=== PATIENT | female | born 1960 | race Caucasian/White ===

== ENCOUNTER 2017-04-27 14:09 | Emergency (ER) | payer MEDICARE ==
[2015-04-10 09:01] VITALS: Ht 162.6 cm; Wt 74.8 kg
[~2017-04-27] VITALS: Ht 162.6 cm; Wt 74.8 kg
[~2017-04-27 14:09] MED LIST: ALB17R INH; ALB6.7R INH; AMO500 PO; ARI10 PO; ARIP15TA9 PO; ARIP5TAB28 PO; AZIT-9 PO; CEFU500T10 PO; CEP500 PO; CHOLESTEROL MED; FENO130C PO; FISH OIL 1,2001 CAP PO; FLUT1DIS27 IH; IBU200 PO; LOR5 PO; LOR7.5/325 PO; MAGIC PO; MED150I IM; MULT-865 PO; NIT100 PO; NITR-106 PO; OMEP-153 PO; PAN40 PO; PHEN200T32 PO; PHENA200 PO; PRA20 PO; PRAV20TA66 PO; PRAV40TA78 PO; PRE20 PO; PRED-1 PO; ROBC PO; SIMV-44 PO; SIMV5TAB60 PO; STEROID INHALER; TRILI135PT PO; VENL150C3 PO; VENL150C61 PO
--- NOTE | 2017-04-27 14:15 | ER Report ---
History and Physical Time Seen By MD: 14:27 (DIXON LEONARDO MD) HPI/ROS CHIEF COMPLAINT: Flulike symptoms HISTORY OF PRESENT ILLNESS: Patient is a 56-year-old female who presents to the emergency prompt clear headache bodyaches shaking chills sweating cough sore throat since Monday. Patient did have an ill contact who stayed with her this weekend with similar type symptoms. It is unclear whether the patient actually had influenza. Patient is a smoker and does have a history of asthmatic bronchitis. REVIEW OF SYSTEMS: Constitutional: Fevers and chills Eyes: No discharge. ENT: Sore throat Cardiovascular: No chest pain, no palpitations. Respiratory: Cough nonproductive Gastrointestinal: No abdominal pain, no vomiting. Genitourinary: No hematuria. Musculoskeletal: No back pain. Skin: No rashes. Neurological: Headache (DIXON LEONARDO MD) Allergies: Coded Allergies: Sulfa (Sulfonamide Antibiotics) (Verified Allergy, Intermediate, RASH, FEVER, CHILLS, 04/09/15) levofloxacin (Verified Allergy, Intermediate, TONGUE SWELLS UP, 04/09/15) niacin (Verified Allergy, Intermediate, ITCHING, 04/09/15) lactose (Verified Allergy, Mild, GI SYMPTOMS, 04/09/15) amoxicillin (Unverified Allergy, Unknown, 04/10/15) paper records from 2002 indicate possible allergy to amoxicillin Home Meds Active Scripts Guaifenesin/Codeine Phosphate (GUAIFENESIN-CODEINE LIQUID) 118 Ml Liquid, 10 ML PO Q4-6H Y for COUGH, #120 ML Prov:DERECK QUARLES V DO 04/27/17 Azithromycin (Z-PACK) 250 Mg Tablet, 1 TAB PO QDAY, #6 DOSE-PACK Prov:DERECK QUARLES V DO 04/27/17 Prednisone (PREDNISONE) 20 Mg Tablet, 20 MG PO BID, #10 TAB Prov:DERECK QUARLES V DO 04/27/17 Reported Medications Levothyroxine Sodium (LEVOTHYROXINE SODIUM) 50 Mcg Tablet, 50 MCG PO QDAY, TAB 04/27/17 Fenofibrate,Micronized (FENOFIBRATE) 130 Mg Capsule, 160 MG PO QDAY, CAPSULE 04/11/15 Pravastatin Sodium (PRAVASTATIN SODIUM) 40 Mg Tablet, 40 MG PO QDAY 04/11/15 Venlafaxine Hcl (VENLAFAXINE HCL ER) 150 Mg Cap.er.24h, 300 MG PO QDAY 04/11/15 Albuterol Sulfate (Proventil Hfa) 6.7 Gm Aer.w.adap, 1-2 PUFF INH PRN 03/28/12 Omeprazole (Omeprazole) 20 Mg Tablet.dr, 40 MG PO DAILY, 0 Refills 05/24/10 Aripiprazole 15 MG (Abilify 15 MG) 15 Mg Tablet, 5 MG PO QDAY, 0 Refills 05/24/10 Fluticasone/Salmeterol (Advair 100/50 Diskus) 1 Disk W/Dev Disk.w.dev, 1 DISK IH BID 05/24/10 Discontinued Reported Medications Multivitamin (DAILY MULTIPLE VITAMIN) 1 Each Tablet, 1 EACH PO DAILY 04/12/15 Past Medical/Surgical History Asthmatic bronchitis (DIXON LEONARDO MD) Hx Smoking: Yes Smoking Status: Current: Every Day Smoker Exposure to Second Hand Smoke?: Yes Hx Substance Use Disorder: No Hx Alcohol Use: Yes (DIXON LEONARDO MD) Constitutional Vital Sign - Last 24 Hours 04/27/17 04/27/17 04/27/17 04/27/17 14:15 14:16 14:25 14:25 Temp 97.8 Pulse 97 85 Resp 24 18 B/P (MAP) 143/98 (113) 143/98 Pulse Ox 96 93 O2 Delivery Room Air Room Air 04/27/17 04/27/17 04/27/17 04/27/17 14:30 14:30 15:00 15:21 Pulse 89 80 Resp 18 16 B/P (MAP) 128/117 (121) 105/73 (84) 04/27/17 04/27/17 15:21 15:26 Pulse 85 Resp 16 Pulse Ox 90 O2 Delivery Room Air (LAURORA,DERECK V DO) Physical Exam General Appearance: The patient is alert, has no immediate need for airway protection and no signs of toxicity. Eyes: Pupils equal and round no pallor or injection. ENT, Mouth: Mucous membranes are moist. Respiratory: There are no retractions, patient has prolonged expiratory phase without audible wheeze Cardiovascular: Regular rate and rhythm. Gastrointestinal: Abdomen is soft and non tender, no masses, bowel sounds normal. Neurological: Awake and alert Skin: Warm and dry, no rashes. Musculoskeletal: Neck is supple non tender. (DIXON LEONARDO MD) Medical Decision Making Data Points Laboratory Hematology Test 04/27/17 14:24 Influenza Virus Type A (PCR) Positive (NEGATIVE) Influenza Virus Type B (PCR) Negative (NEGATIVE) Chemistry Test 04/27/17 14:24 Influenza Virus Type A (PCR) Positive (NEGATIVE) Influenza Virus Type B (PCR) Negative (NEGATIVE) (DERECK QUARLES DO) ED Course/Re-evaluation ED Course 04/27/2017 2:29:58 pm patient with influenza-like symptoms but is out of the window for Tamiflu. Plan will be DuoNeb treatment will also take x-ray of the chest to look for possible pneumonia. We will perform influenza screening (DIXON LEONARDO MD) ED Course 04/27/2017 3:22:34 pm PTs influenza back positive. PT has been exposed and had symptoms beyond the tamiflu start gibson. Pt is still wheezing after initial treatement. Pt has asthma. will treat her asthma with repeat neb and steriods. 04/27/2017 3:32:17 pm wheezing improved with second treatment and steriods. Pts xray shows possible acute bronchitis or early infiltrate. will treat as superimposed infection on influenza. Decision to Disposition Date: Apr 27, 2017 Decision to Disposition Time: 15:13 (DERECK QUARLES DO) Depart Departure Latest Vital Signs Vital Signs Date Time Temp Pulse Resp B/P (MAP) Pulse Ox O2 Delivery O2 Flow Rate FiO2 04/27/17 15:26 85 16 04/27/17 15:21 90 Room Air 04/27/17 15:00 105/73 (84) 04/27/17 14:16 97.8 (DERECK QUARLES DO) Impression: Primary Impression: Influenza A Additional Impressions: Asthma exacerbation attacks Pneumonia, community acquired Condition: Improved Disposition: HOME OR SELF-CARE Referrals: TRENT PUGA (PCP) New Scripts Guaifenesin/Codeine Phosphate (GUAIFENESIN-CODEINE LIQUID) 118 Ml Liquid 10 ML PO Q4-6H Y for COUGH, #120 ML Prov: DERECK QUARLES V DO 04/27/17 Azithromycin (Z-PACK) 250 Mg Tablet 1 TAB PO QDAY, #6 DOSE-PACK Prov: ARYAN QUARLESSA V DO 04/27/17 Prednisone (PREDNISONE) 20 Mg Tablet 20 MG PO BID, #10 TAB Prov: DERECK QUARLES DO 04/27/17 Departure Forms: ER Transition Record, Medications Reconciliation, Patient Portal Information Patient Instructions: Influenza (DC) Additional Instructions: You have the flu. Motrin (advil, ibuprofen) 600mg every 6 hours as needed for bodyaches and fever tylenol 650mg every 4 hours as needed for bodyachs and fever. Use your albuterol inhaler 2 puffs every 4 hours as needed for wheezing and cough. Prednisone 20mg twice a day for 5 day Zithromax 2 pills today then one pill each day for 4 more days. Return for any concerns. Problem Qualifiers Additional Impressions: Asthma exacerbation attacks Asthma severity: mild Asthma persistence: intermittent Qualified Codes: J45.21 - Mild intermittent asthma with (acute) exacerbation Pneumonia, community acquired Laterality: left Lung location: unspecified part of lung Qualified Codes: J18.9 - Pneumonia, unspecified organism DIXON LEONARDO MD Apr 27, 2017 14:15 DERECK QUARLES DO Apr 27, 2017 15:13
[2017-04-27] MEDS ORDERED: IBUPROFEN 800 MG TAB PO ONE (14:20)
[2017-04-27] MEDS ORDERED: ALBUTEROL/IPRATROPIUM 3 ML NEB NEB ONE ×2 (14:20→15:20)
[2017-04-27] MEDS ORDERED: LEVO50TA86 PO (14:23)
[2017-04-27] MEDS ORDERED: predniSONE 20 MG TAB PO ONE (15:20)
--- NOTE | 2017-04-27 15:25 | RADIOLOGY IMAGING REPORT ---
FACILITY: [facility] PATIENT NAME: Tyler Foley : 1960 MR: [id number] V: [id number] EXAM DATE: ORDERING PHYSICIAN: DIXON LEONARDO TECHNOLOGIST: Location: [facility] Patient: Tyler Foley : 1960 Visit/Account:[id number] Date of Sevice: 04/27/2017 Exam type: CHEST PA AND LAT History: cough Comparison: February 09, 2014. Findings: There is mild increased peribronchial thickening noted bilaterally. No evidence of pleural effusions or pulmonary edema. There appears to be a focal area of increased density in the medial portion of the left midlung field just inferior to the left hilum. This could represent superimposed shadow faustino jason focal infiltrate or mass lesion. Short-term interval follow-up recommended. The cardiac silhoue tte is normal in size. The visual as bones are unremarkable for age. IMPRESSION: 1. Subtle increased bronchial thickening which may be related to acute bronchitis There is a focal area of increased density in the medial left midlung field just below the left hilum which could represent a superimposed shadow although short-term interval follow-up recommended to ex clude the possibility of a small infiltrate or mass lesion Report Dictated By: Amy Patterson MD at 04/27/2017 3:17 PM Report E-Signed By: Amy Patterson MD at 04/27/2017 3:20 PM WSN:[email or web address]
[2017-04-27 15:30] VITALS: BP 116/101
[2017-04-27] MEDS ORDERED: PRED20TA6 PO (15:37)
[2017-04-27] MEDS ORDERED: AZIT-17 PO (15:37)
[2017-04-27] MEDS ORDERED: GUAI-561 PO (15:37)
== END 2017-04-27 15:51 | disposition home or self-care (01) ==
LOC: ER 14:15
DX: J09.X1 Influenza due to identified novel influenza A virus with pneumonia (principal); J18.8 Other pneumonia, unspecified organism; F17.210 Nicotine dependence, cigarettes, uncomplicated; J45.21 Mild intermittent asthma with (acute) exacerbation
CPT/HCPCS: 71046; 87502; 94640; 99283; A9270; J7512; J7620

== ENCOUNTER → 2018-05-30 | Outpatient (CLI) | payer MEDICARE ==
[2015-04-10 09:01] VITALS: BMI 24.9
[~2018-05-30] MED LIST changes: +AZIT-17 PO; +GUAI-561 PO; +LEVO50TA86 PO; +PRED20TA6 PO; -SIMV5TAB60 PO; +SIMV5TAB69 PO
--- NOTE | 2018-05-30 11:27 | RADIOLOGY IMAGING REPORT ---
FACILITY: [facility] PATIENT NAME: Tyler Foley : 1960 MR: [id number] V: [id number] EXAM DATE: ORDERING PHYSICIAN: TRENT PUGA TECHNOLOGIST: [place] [facility] [place] : 1960 Visit/Account:[id number] Date of Sevice: 05/30/2018 DEXA Scan Clinical history: Ovarian failure. Comparison: None available. LUMBAR SPINE: The bone mineral density (BMD) measured from L1-L4 correlates with a Z-score 2.3 and a T-score of 1.9 which is Normal as defined by the World Health Organization. The corresponding risk of fracture in the lumbar spine is Not increased compared with a young adult reference population. HIP: Bone mineral density (BMD) measured in the Left total hip region correlates with a Z-score 0.6 and a T-score of 0.3 which is Normal as defined by the World Health Organization. The corresponding risk o f fracture in the hip is Not increased compared with a young adult reference population. T score le ft femoral neck 0.4 Bone mineral density (BMD) measured in the Femoral Neck region measures 1.089 g/cm2. Impression: 1. Lumbar spine: Normal. 2. Left Hip: Normal. 3. Femoral Neck: Bone Mineral Density is 1.089 g/cm2 The next DEXA scan of this patient should include the following sites: L1-L4 and the left hip. FRAX? WHO Fracture Risk Assessment Tool link: <http://www.shef.ac.uk/FRAX/tool.jsp?locationValue=9> PLEASE NOTE: 1) The World Health Organization defines low BMD as follows: T-score Normal > -1 Osteopenia < -1 and > -2.5 Osteoporosis < -2.5 without fractures Established osteoporosis < -2.5 with fractures 2) In general, you may wish to consider: Diagnosis Treatment Follow-up DEXA Normal BMD Prevention 2-3 years Osteopenia Prevention/therapy 1-2 years Osteoporosis Therapy Yearly 3) Fracture risk estimated from the T-score is more accurate for vertebral fractures (often spontane ous) than for hip fractures. Report Dictated By: Amy Patterson MD at 05/30/2018 11:19 AM Report E-Signed By: Amy Patterson MD at 05/30/2018 11:23 AM WSN:[email or web address]
--- NOTE | 2018-05-30 16:50 | RADIOLOGY IMAGING REPORT ---
FACILITY: [facility] PATIENT NAME: ALLAN MCKEON : [id number] MR: [id number] V: [id number] EXAM DATE: ORDERING PHYSICIAN: TRENT PUGA TECHNOLOGIST: Renetta Cohn PROCEDURE:BILATERAL DIGITAL SCREENING MAMMOGRAM WITH CAD ASSISTED INTERPRETATION & 3D TOMOSYNTHESIS COMPARISON:Prior mammograms 06/20/14, 09/11/12. INDICATIONS:SCREENING FINDINGS: The breasts are extremely dense which lowers the sensivity of mammography. There are scattered round and mild like calcifications throughout the upper outer quadrant of the Right breast that are slightly increased when compared to the prior mammograms. Spot magnification views recommended for further evaluation. There is an ovoid well circumscribed nodular density in the posterior 1/3 of the Right breast just posterior to mid line on the Right CC view best seen on Tomographic slice 25. This is in the upper portion of the Right breast on the Right MLO view best seen on Tomographic slice 32. There is an additional lobular area of increased density in the lateral portion of the Right breast posterior 1/3 on the Right CC view Tomographic slice 26 and on the Right MLO view Tomographic slice 21. Spot compression views of these locations and probable Right breast Ultrasound recommended depending upon the additional imaging findings. DIAGNOSTIC CATEGORY 0--INCOMPLETE: NEED ADDITIONAL IMAGING EVALUATION. RECOMMENDATIONS: ADDITIONAL MAMMOGRAPHIC VIEWS REQUIRED: RIGHT BREAST. ULTRASOUND: RIGHT BREAST. IMPRESSION: BIRADS 0: Incomplete. Additional views of the Right breast and Right breast Ultrasound is recommended as described. Dictated by: Amy Patterson M.D. on 05/30/2018 at 10:11 Transcribed by: PUJA on 05/30/2018 at 14:16 Approved by: Amy Patterson M.D. on 05/30/2018 at 16:49 [facility]
== END ==
LOC: MAMO 01:35
PROVIDERS: ATTEND Nurse Practitioner Psychiatric/Mental Health
DX: Z12.31 Encounter for screening mammogram for malignant neoplasm of breast (principal); E89.41 Symptomatic postprocedural ovarian failure; R92.8 Other abnormal and inconclusive findings on diagnostic imaging of breast; R92.1 Mammographic calcification found on diagnostic imaging of breast
CPT/HCPCS: 77063; 77067; 77080

== ENCOUNTER → 2018-06-27 | Outpatient (CLI) | payer MEDICARE ==
[2015-04-10 09:01] VITALS: BMI 24.9
--- NOTE | 2018-06-28 11:54 | RADIOLOGY IMAGING REPORT ---
FACILITY: [facility] PATIENT NAME: ALLAN MCKEON : [id number] MR: [id number] V: [id number] EXAM DATE: [id number] ORDERING PHYSICIAN: TRENT PUGA TECHNOLOGIST: Renetta Cohn PROCEDURE:RIGHT DIGITAL DIAGNOSTIC MAMMOGRAM WITH CAD ASSISTED INTERPRETATION & 3D TOMOSYNTHESIS COMPARISON:Prior mammograms 05/30/18, 06/20/14, 09/11/12. INDICATIONS:further evaluation FINDINGS: The patient returned for Spot magnification views in the Right CC & MLO projections in addition to Spot compression views in the Right CC & MLO projections. Multiple scattered round calcifications are seen in the upper outer quadrant of the Right breast. These do appear to have increased in number when compared to the prior mammograms from 06/20/14. No branching is identified. There is an ovoid lobular mass in the upper outer quadrant of the Right breast which is re-demonstrated on the Spot compression views. Today's Right breast mammogram demonstrated a solid irregular mass in this location for which Ultrasound guided core biopsy is recommended. There are multiple cysts also identified in the Right breast which likely account for the additional circumscribed masses. DIAGNOSTIC CATEGORY 4--SUSPICIOUS FOR MALIGNANCY. RECOMMENDATIONS: SIX MONTH FOLLOW-UP DIAGNOSTIC MAMMOGRAM: RIGHT BREAST. ULTRASOUND-GUIDED CORE BIOPSY: RIGHT BREAST. IMPRESSION: BIRADS 4: Suspicious for malignancy. Ultrasound guided core biopsy of the solid mass 10 o'clock position of the Right breast recommended as described in today's Right breast Ultrasound report. A 6 month follow-up Right mammogram is recommended to follow the round calcifications in the upper outer quadrant of the Right breast. Dictated by: Amy Patterson M.D. on 06/27/2018 at 16:52 Transcribed by: PUJA on 06/28/2018 at 9:50 Approved by: Amy Patterson M.D. on 06/28/2018 at 11:53 [facility]
--- NOTE | 2018-07-02 14:12 | RADIOLOGY IMAGING REPORT ---
FACILITY: [facility] [place] PATIENT NAME: ALLAN MCKEON : [id number] MR: [id number] V: [id number] EXAM DATE: ORDERING PHYSICIAN: TRENT PUGA TECHNOLOGIST: Eunice Mcclelland RT(R)(CT) PROCEDURE:US RIGHT BREAST COMPLETE COMPARISON:None. INDICATIONS:further evaluation FINDINGS: There are numerous cysts identified in the medial portion of the Right breast the largest measuring approximately 1cm in diameter. There is a small fatty replaced lymph node in the 3 o'clock position of the Right breast 2cm from the nipple measuring 5.7 x 6.7 x 2.2mm. There is an additional probable fatty replaced lymph node in the 4 o'clock position of the Right breast 2cm from the nipple measuring 4 x 5.9 x 2.3mm. In the 10 o'clock position of the Right breast 5cm from the nipple there is a large solid hypoechoic non-circumscribed micro-lobulated mass with faint acoustic enhancement. This likely accounts for the dominant mass seen on today's mammogram. Ultrasound guided core biopsy of this mass is recommended for further evaluation. There are multiple cysts identified in the Right breast the largest is in the 12 o'clock position measuring approximately 9.3mm. There are several small fatty replaced lymph nodes 1 in the 3 o'clock position 2cm from the nipple measuring 5.7 x 6.7 x 2.2mm and 1 in the 4 o'clock position 2cm from the nipple measuring 4 x 5.9 x 2.3mm. In the 10 o'clock position of the Right breast 5cm from the nipple there is a solid non-circumscribed micro-lobulated hypoechoic mass measuring 2.3 x 2.2 x 1.5cm with faint acoustic enhancement. Ultrasound guided core biopsy is recommended. DIAGNOSTIC CATEGORY 4--SUSPICIOUS FOR MALIGNANCY. RECOMMENDATIONS: ULTRASOUND-GUIDED CORE BIOPSY: RIGHT BREAST. IMPRESSION: BIRADS 4: Suspicious for malignancy. Ultrasound guided core biopsy of the large solid mass 10 o'clock position of the Right breast 5cm from the nipple recommended as described above. Dictated by: Amy Patterson M.D. on 06/27/2018 at 16:47 Transcribed by: PUJA on 06/28/2018 at 10:02 Approved by: Amy Patterson M.D. on 07/02/2018 at 14:11 [facility]
== END ==
LOC: MAMO 00:51
PROVIDERS: ATTEND Nurse Practitioner Psychiatric/Mental Health
DX: R92.1 Mammographic calcification found on diagnostic imaging of breast (principal); N63.11 Unspecified lump in the right breast, upper outer quadrant; N60.11 Diffuse cystic mastopathy of right breast
CPT/HCPCS: 77061; 77065

== ENCOUNTER 2018-07-03 12:59 | Outpatient (RCR) | payer MEDICARE ==
[2015-04-10 09:01] VITALS: BMI 24.9
[2018-07-03 13:21] LABS: INR 0.89
--- NOTE | 2018-07-05 08:43 | RADIOLOGY IMAGING REPORT ---
[place] [facility] [place] NAME: ALLAN MCKEON : [id number] MR: [id number] V: [id number] EXAM DATE: [id number] ORDERING PHYSICIAN: TRENT PUGA TECHNOLOGIST: Seda Mary RDMS PROCEDURE: BIOPSY RIGHT BREAST COMPARISON: Right breast Ultrasound of 06/27/18 INDICATIONS: Right breast lump/solid irregular mass 10 o'clock position of the Right breast FINDINGS: Informed consent was obtained including potential risks & complications such as bleeding & infection. A formal time out was called. The Right breast was prepped & draped in the usual sterile fashion. Local anesthesia was accomplished with 1% Lidocaine. Under direct sonographic guidance four 14 gauge core biopsies were obtained through the irregular hypoechoic mass in the 10 o'clock position of the Right breast. The samples were placed in formalin, shown to the patient & sent to the Laboratory for evaluation. A biopsy clip was placed in the biopsy site. The procedure was accomplished without apparent complication. The post biopsy mammogram demonstrated the clip to be located within the irregular mass upper outer quadrant of the Right breast. IMPRESSION: Successful sonographically guided biopsy of the irregular hypoechoic mass 10 o'clock position of the Right breast. Pathology results are pending. Dictated by: Amy Patterson M.D. on 07/04/2018 at 16:13 Transcribed by: KATHLEEN on 07/05/2018 at 8:27 Approved by: Amy Patterson M.D. on 07/05/2018 at 8:41 [facility]
--- NOTE | 2018-07-05 08:43 | RADIOLOGY IMAGING REPORT ---
[place] [facility] [place] NAME: ALLAN MCKEON : [id number] MR: [id number] V: [id number] EXAM DATE: ORDERING PHYSICIAN: TRENT PUGA TECHNOLOGIST: Eun Pelayo PROCEDURE:RIGHT DIGITAL DIAGNOSTIC MAMMOGRAM COMPARISON:Prior mammograms dated 06/27/18 INDICATIONS:clip placement/Post Ultrasound biopsy clip placement FINDINGS: The biopsy clip is located in the polylobular mass in the upper outer quadrant of the Right breast posterior third. Pathology results are pending. IMPRESSION: 1. As above. Dictated by: Amy Patterson M.D. on 07/04/2018 at 16:14 Transcribed by: KATHLEEN on 07/05/2018 at 8:14 Approved by: Amy Patterson M.D. on 07/05/2018 at 8:41 [facility]
== END 2018-07-04 18:00 | disposition home or self-care (01) ==
LOC: US 12:59
PROVIDERS: ATTEND Nurse Practitioner Psychiatric/Mental Health
DX: N63.10 Unspecified lump in the right breast, unspecified quadrant (principal)
CPT/HCPCS: 19083; 36415; 77061; 77065; 85049; 85610; 88305; 88344

== ENCOUNTER 2018-08-16 13:26 | Outpatient (RCR) | payer MEDICARE ==
[2015-04-10 09:01] VITALS: Ht 162.6 cm; Wt 68.7 kg
[2018-07-18 12:47] VITALS: BP 112/81
[2018-07-18 14:13] LABS: PLATELET COUNT, AUTOMATED 459 K/uL (150-450)
--- NOTE | 2018-07-18 20:57 | ONCOLOGY CONSULTATION ---
EVENT DATE: July 18, 2018 REASON FOR CONSULTATION Patient was referred to us by her PCP, Amanda Olivas, after having abnormal mammogram and ultrasound, followed by biopsy of the right breast, which revealed invasive ductal breast cancer, specifically mucinous type. Apparently, patient was in to see her PCP for ongoing followup, and at that time, maintenance screening was ordered to include bilateral mammogram and bone density test. INTERIM HISTORY After patient was seen by PCP in early June, during that visit, routine screening was ordered to include bilateral mammogram and bone density tests. Mammogram on 06/27/18 revealed numerous cysts in the right breast, largest measuring approximately 1 cm in diameter. There was a small fatty replaced lymph node at the 3 o'clock position of right breast 2 cm from the nipple. That area measured 5.7 x 6.7 x 2.2 mm. There was also an additional probable fatty replaced lymph node in the 4 o'clock position of the right breast 2 cm from the nipple, measuring 4 x 5.9 x 2.3 mm. At the 10 o'clock position of the right breast 5 cm from the nipple, there was a large solid hypoechoic non- circumscribed microlobulated mass with faint acoustic enhancement. Per mammogram, this likely accounted for the dominant mass seen on that scan. There were no abnormalities noted in the left breast. Mammogram was classified as a category 4, suspicious for malignancy. Ultrasound revealed a solid non- circumscribed microlobulated hypoechoic mass at the right breast 5 cm from the nipple, measuring 2.3 x 2.2 x 1.5 cm. Patient then had right breast biopsy done on 07/03/18. Pathology done locally at [facility] revealed that the right breast mass at 10 o'clock position was positive for mucinous breast cancer. Thus far, biomarkers revealed ER positive strong at 74.3%, WA positive, though weakly intensified at 8.9%, HER2/jodi not over expressed at 1+, with Ki-67 score low at 9.5%. Patient tells me that she otherwise had been feeling fine and was simply in for routine maintenance. Her DEXA scan from date of service 05/30/18 was normal. Patient tells me that she was not performing self-breast exams and states that she never noted a lump or mass and tells me that per PCP exam, this was not palpable either. This was simply ordered as a routine screening. She denies any recent constitutional symptoms other than a couple of weeks of fatigue, though tells me that her appetite has been stable. She denies any fevers, chills, night sweats, or recent infections. No unexplained weight loss. She continues smoking approximately one pack per day, down from previous 1-1/2 packs per day. She reports a history of MS. She reports a history significant for depression and psychoaffective disorder, but tells me this is under good control with her medications. She tells me that she has seen a psychologist for many years and has undergone psychotherapy on and off for the last 20 years. Lastly, she tells me that she saw Dr. Mehta at [facility] around November and December 2017 due to some abnormal uterine bleeding. She tells me that she has been menopausal now for at least a year. She believes she was prescribed some hormones for a few days to help with the bleeding. Likely sounds like she was given a short course of progesterone. She tells me that it is about time to follow up with her general office clerk, but she has not scheduled that appointment yet. She does report some difficulty with transportation as she does not have a vehicle. She also tells me she occasionally does not have enough cell phone minutes and will have to use her neighbor's phone. She has people call her and leave messages with her neighbor. PAST MEDICAL HISTORY 1. Hypothyroidism. 2. Multiple sclerosis. 3. Gastritis/GERD. 4. Asthma. 5. Prediabetes. 6. Hypercholesterolemia. 7. Schizoaffective disorder. GYNECOLOGIC HISTORY 1. Positive for menopause as of December 2017. No menses times one full year prior to that. 2. Patient has uterus, bilateral ovaries and fallopian tubes intact. 3. Patient is G4, P0. Positive for three abortions and one miscarriage. PAST SURGICAL HISTORY 1. Appendectomy 1976. 2. D and C 1979. 3. Past ECT treatments. SOCIAL HISTORY Patient does not work. She lives alone. She is single. 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 She reports history of psychoaffective disorder, currently under good control with medications. She drinks one to two beers daily. She smokes cigarettes, one pack per day. She reports this has decreased down from 1-1/2 packs per day. She is disabled. FAMILY HISTORY Significant for uterine cancer in both her paternal and maternal grandmothers. Significant for uterine cancer in her mother. MEDICATIONS 1. Aripiprazole 10 mg daily. 2. Fenofibrate 160 mg tablet daily. 3. Fluticasone 100 mcg/salmeterol 50 mcg dose blister powder for inhalation twice daily. 4. Ibuprofen 600 mg p.o. b.i.d. 5. Levothyroxine 25 mcg p.o. daily. 6. Omeprazole 20 mg p.o. daily. 7. Pravastatin 40 mg daily. 8. Triamcinolone acetonide 0.1% topical ointment. 9. Venlafaxine ER 150 mg two capsules daily. REVIEW OF SYSTEMS CONSTITUTIONAL: Patient denies any recent fevers, chills, or night sweats. No recent infections. She reports significant URI back in the winter, which she believes resulted in some lymphadenopathy. This has now resolved. She reports some fatigue. HEENT: No vision changes. No tinnitus. No abnormal nasal drainage. No dysphagia or odynophagia. No mouth sores. RESPIRATORY: She has a history of asthma. She has an occasional cough productive of clear sputum. She recently had an asthma flare. She is using her inhalers. She believes she may have some wheezes. No shortness of breath. No pleuritic chest pain. CARDIAC: She denies any chest pain. No syncope or presyncope. BREASTS: She hasn't been performing self-breast exams. She hasn't noticed any palpable lumps or changes in her breasts. GASTROINTESTINAL: No abdominal pain, nausea, vomiting, constipation, diarrhea, bright red blood per rectum, or melena. Appetite is normal. She reports that she may be prediabetic. GENITOURINARY: No dysuria, hematuria, or genitourinary discharge. GYNECOLOGIC: Patient reports menopause since December 2017. She reports that she did take a dose of progesterone for excessive uterine bleeding back in December 2017. No episodes since then. MUSCULOSKELETAL: Patient has a history of MS. No focal areas of pain. ENDOCRINE: She denies any heat or cold intolerance. No vasomotor symptoms. She does report some fatigue, more fatigue noticed in the last two weeks. PSYCHIATRIC: She reports a history of psychoaffective disorder. She reports that this is well controlled with Abilify and Effexor. DERM: She denies any rash or generalized pruritus. The remainder of a 12-point review of systems is performed today and is otherwise negative. PHYSICAL EXAMINATION VITAL SIGNS: No weight. T 97.8, P 88, respirations 16, BP 112/81, oxygen saturation 90% room air. Currently rates pain level at "0/10." Currently rates fatigue at level 7/10. GENERAL: In general, this is a pleasant 57-year-old woman who appears well hydrated, well nourished, and in no acute distress. She does smell of cigarette smoke. HEAD: Atraumatic, normocephalic. EYES: Sclerae anicteric. NECK: Supple. No lymphadenopathy. No JVD. LUNGS: Clear breath sounds, diminished at the bases with scattered wheezes noted to the right lower lobe, consistent with asthma. No focal findings. CARDIOVASCULAR: Regular rate and rhythm. No ectopy. GASTROINTESTINAL: Abdomen soft, nontender, nondistended. Bowel sounds positive x4. No organomegaly. BREASTS: Right breast reveals some mature bruising at the 10 o'clock position, 5 cm from the nipple, consistent with recent biopsy. No significant palpable lumps, skin changes, or nipple discharge. Left-sided breast exam does not reveal any palpable lumps, skin changes, or nipple discharge. There is no obvious axillary adenopathy noted bilaterally. EXTREMITIES: No edema. No clubbing or cyanosis. PSYCHIATRIC: Mood and affect are appropriate. NEUROLOGIC: Patient is awake, alert, oriented x3. MUSCULOSKELETAL: Ambulation is steady. LABORATORIES CBC, CMP, CEA, and CA27.29 ordered today, pending at time of dictation. BRCA-1 and -2 also ordered today and pending. PATHOLOGY Right breast 10 o'clock biopsy at [facility] on 07/13/18: Mucinous breast carcinoma. Comment: Lesion is also known as colloid breast cancer. BIOMARKERS: ER positive, strong, 74.3%. WA positive, weak intensity, 8.9%. HER2/jodi not over expressed, 1+. Ki-67 score low at 9.5%. p53 absent/negative, resulted at 0.3%. IMPRESSION AND PLAN This is a pleasant 57-year-old woman with history of multiple sclerosis, hyperlipidemia, asthma, gastritis, hypothyroidism, as well as schizoaffective disorder, who recently saw her primary care physician for routine evaluation. Standard testing was ordered to include bone density test and mammogram. Unfortunately, mammogram was abnormal with several areas noted in the right breast. One area was highly suspicious, which is located at the 10 o'clock positive 5 cm from the nipple. Ultrasound was then performed. Biopsy of the right breast mass revealed invasive ductal carcinoma consistent with mucinoid features. Discussed with patient that this is an atypical breast cancer and is not found other than in roughly 2% of the population. Discussed that this is more of a slow-growing, less aggressive cancer, although proper workup and complete staging are necessary. She is a smoker and is a long-time smoker and is still smoking one pack per day. She also drinks one to two beers daily. She does have a history of multiple sclerosis. She also has a history of asthma. Lastly, she does have family history significant for uterine cancer in her mother as well as both of her grandmothers. She also has some abnormal uterine bleeding in approximately December of last year, though I do not have those records. This has not recurred. We had a long discussion regarding her diagnosis, histology, prognosis, and treatment, to include lumpectomy versus mastectomy. We also discussed further workup. 1. Proper labs will be ordered today, including tumor markers for baseline. 2. BRCA-1 and -2 testing today. 3. Staging: I have ordered Oncotype DX score to be done. Hopefully, this can be added on to tissue pathology. 4. For staging purposes, I have ordered a CT scan of the chest, abdomen, and pelvis, as well as bone scan. 5. We will be referring her to the multidisciplinary clinic in [facility]. 6. She will see Dr. Trejo in the future and may see him at multidisciplinary clinic. 7. I have asked the patient to return to clinic in approximately three to four weeks for followup. Hopefully at that time, scans and all labs will have returned, and we can further discuss treatment options. 8. Ample time was spent with patient. All of her questions were answered. MARILU
--- NOTE | 2018-08-13 11:06 | RADIOLOGY IMAGING REPORT ---
FACILITY: [facility] PATIENT NAME: Tyler Foley : 1960 MR: [id number] V: [id number] EXAM DATE: ORDERING PHYSICIAN: TATO GILLETTE TECHNOLOGIST: Location: [facility] [place] Patient: Tyler Foley : 1960 Visit/Account:[id number] Date of Sevice: 08/13/2018 CT CHEST ABDOMEN PELVIS W/CON HISTORY: Breast cancer ADDITIONAL HISTORY: None. TECHNIQUE: Following administration of IV contrast axial images acquired through the chest abdomen a nd pelvis during the portal venous phase. Coronal and sagittal reformatting was also performed.Dose Lowering Technique One of the following dose optimization techniques was utilized in the performance of this exam: Autom ated exposure control; adjustment of the mA and/or kV according to the patient's size; or use of an i terative reconstruction technique. Specific details can be referenced in the facility's radiology C T exam operational policy. CONTRAST: 75 mL Isovue-370 COMPARISON: None. FINDINGS: CHEST: Lungs/Pleura: There is a small linear band of scarring versus atelectasis in the lateral left lower lobe. Mediastinum/lymph nodes: Negative. Heart/vessels: Negative. Bones/soft tissues: Negative ABDOMEN AND PELVIS: Hepatobiliary: There Is a tiny calcification in the neck of the gallbladder which may represent a sma ll stone. There is no evidence of biliary ductal dilatation Spleen: Negative. Pancreas: Negative. Adrenals: Negative. Kidneys ureters and bladder : Negative. Genitalia: Negative. GI: Negative. Vessels/spaces/nodes: Minimal atherosclerotic calcifications in the abdominal aorta and branch vesse ls Bones/soft tissues: There is a 7 mm sclerotic lesion right side of the L5 vertebral body. This may represent an incidental bone island although correlation needed with today's bone scan. There is a l evoconvex scoliosis of the lumbar spine Additional findings: None pertinent. IMPRESSION: There is a tiny calcification the neck of the gallbladder which may represent a small stone. There i s no evidence of biliary ductal dilatation. There is a 7 mm sclerotic lesion in the right-sided L5 vertebral body. This may simply represent an incidental bone island although correlation with today's bone scan is recommended Report Dictated By: Amy Patterson MD at 08/13/2018 9:51 AM Report E-Signed By: Amy Patterson MD at 08/13/2018 11:01 AM WSN:GEORGETTE
--- NOTE | 2018-08-13 14:21 | RADIOLOGY IMAGING REPORT ---
FACILITY: [facility] PATIENT NAME: Tyler Foley : 1960 MR: [id number] V: [id number] EXAM DATE: ORDERING PHYSICIAN: TATO GILLETTE TECHNOLOGIST: Location: [facility] Patient: Tyler Foley : 1960 Visit/Account:[id number] Date of Sevice: 08/13/2018 NM BONE SCAN COMPLETE HISTORY: Right breast cancer TECHNIQUE: 24.4 mCi technetium 99m HDP was injected intravenously. Delayed anterior and posterior wh ole body gamma camera images were obtained. Additional gamma camera images: Right left lateral skull COMPARISON: CT chest seven pelvis performed today FINDINGS: Bone radiotracer activity: There multiple focal areas of isotope uptake seen in the cervical spine w hich may be degenerative in nature. Plain film correlation may be helpful. There Is a focal area of isotope uptake seen over the sternomanubrial junction. Hypertrophic changes are seen on today's CT scan this location which are likely degenerative. Degenerative type uptake is noted over the left wr ist the knees the left ankle and foot. No increased uptake is identified over the right side of the L5 vertebral body there for the sclerotic density seen on today's CT is likely a bone island. Extraosseous radiotracer activity: Unremarkable. Renal and urinary collecting system activity: Unremarkable. IMPRESSION: Multiple focal areas of isotope uptake within the cervical spine may be degenerative in nature althou gh plain film correlation would be helpful Focal area of isotope uptake over this manubrial joint is likely degenerative Multifocal additional areas of degenerative type uptake as described above No abnormal uptake identified over the right-sided L5 vertebral body there for the sclerotic density seen on today's CT scan is likely a bone island Report Dictated By: Amy Patterson MD at 08/13/2018 2:10 PM Report E-Signed By: Amy Patterson MD at 08/13/2018 2:17 PM TONYN:GEORGETTE
[~2018-08-16] VITALS: Ht 162.6 cm; Wt 68.7 kg
[~2018-08-16 13:26] MED LIST changes: +IOPAMIDOL 76% 100 ML INFUS BTL 100 ML ONE
[2018-08-16 13:53] VITALS: BP 168/82
--- NOTE | 2018-08-21 12:25 | RADIOLOGY IMAGING REPORT ---
FACILITY: [facility] PATIENT NAME: ALLAN MCKEON : [id number] MR: [id number] V: [id number] EXAM DATE: [id number] ORDERING PHYSICIAN: SHU GILLETTE TECHNOLOGIST: Shu Hansen PROCEDURE:BREAST BILATERAL W/O AND/OR WITH CONTRAST COMPARISON:Right mammogram 07/04/18, Right breast Ultrasound 06/27/18, Bilateral mammogram 05/30/18. INDICATIONS: right breast cancer FAMILY HISTORY OF BREAST CANCER: The patient has recently undergone an Ultrasound guided core biopsy demonstrating a mucinous breast carcinoma in the 10 o'clock position of the Right breast. BREAST PROCEDURES/TREATMENTS: Ultrasound guided Right breast biopsy on 07/04/18. TECHNIQUE: All imaging was performed prone in a dedicated breast coil. Axial and coronal T1 weighted images, axial T2 STIR and gradient echo imaging was performed of both breasts. Axial T1 dynamically enhanced imaging of both breasts was performed using 5 dynamic sequences. The dynamic series was timed for a 90 second peak. Subtraction imaging was performed. 15mL of Multihance was utilized for the post contrast portion of the examination. Post processing was performed using the Canines workstation. FINDINGS: In the 10 o'clock position of the Right breast in the mid to posterior depth there is an irregular non circumscribed heterogeneous room enhancing mass with slow contrast enhancement with washout kinetics. The peak enhancement is 110%. There is a biopsy clip within this mass. The score responds to the mucinous breast carcinoma recently diagnosed by Ultrasound guided core biopsy. In the 1 o'clock position of the Right breast in the anterior depth there is a 6mm ovoid circumscribed homogeneously enhancing mass with a rapid initial contrast uptake with [place] kinetics. The peak enhancement is 240%. Right breast Ultrasound recommended to further evaluate this finding. In the 2-3 o'clock position of the Right breast in the middle 1/3 there is a 7mm ovoid circumscribed homogeneously enhancing mass for this low initial contrast rise and [place] kinetics. The peak enhancement is 119%. This may represent the fatty replaced lymph node seen in the 3 o'clock position of the Right breast on the recent Right breast Ultrasound. In the 3-4 o'clock position of the Right breast in the posterior depth there is a 4mm circumscribed oval homogeneously enhancing mass with slow initial contrast rise and washout kinetics. The peak enhancement is 67%. This may represent intramammary lymph node in the 4 o'clock position seen on the recent Right breast Ultrasound. In the approximate 1 o'clock position of the Left breast in the anterior 1/3 there is a 6.5mm ovoid circumscribed homogeneously enhancing mass with slow initial contrast rise, [place] kinetics and the peak enhancement of 84%. Left breast Ultrasound recommended for further evaluation. AMOUNT OF FIBROGLANDULAR TISSUE: Heterogeneous fibroglandular tissue. BACKGROUND PARENCHYMAL ENHANCEMENT: Mild asymmetric masses. DIAGNOSTIC CATEGORY 0--INCOMPLETE: NEED ADDITIONAL IMAGING EVALUATION. RECOMMENDATIONS: ULTRASOUND: BILATERAL BREASTS. IMPRESSION: BIRADS 0: Incomplete. Heterogeneous room enhancing mass in the 10 o'clock position of the Right breast corresponds to the previously biopsied mucinous carcinoma. There is a 6.5mm homogeneously enhancing mass in the 1 o'clock position of the Left breast in the anterior 1/3 for which Left breast Ultrasound is recommended. There is a homogeneous enhancing mass in the 1 o'clock position of the Right breast in the anterior 1/3 in addition to 2 additional homogeneously enhancing masses in the 2-3 o'clock position and the 3-4 o'clock position for which Right breast Ultrasound is recommended. PLEASE NOTE:A NORMAL MRI DOES NOT EXCLUDE THE POSSIBILITY OF BREAST CANCER. A CLINICALLY SUSPICIOUS PALPABLE LUMP SHOULD BE BIOPSIED. CORRELATION WITH CLINICAL EXAM AND OTHER IMAGING STUDIES IS RECOMMENDED. Dictated by: Amy Patterson M.D. on 08/15/2018 at 9:39 Transcribed by: PUJA on 08/16/2018 at 14:31 Approved by: Amy Patterson M.D. on 08/21/2018 at 12:24 [facility]
--- NOTE | 2018-08-21 12:59 | NUR ---
SW completed applications for [employer]. SW notified pt that applications were completed.
--- NOTE | 2018-08-23 10:34 | Oncology Note ---
I received Bilat Breast MRI results on Ms. Foley. She saw Dr. Mario last 08/16/18 for F/U OV, that note is currently pending from MD. Results revealed the known right breast mass at the 10 o'clock position, which was previously biopsied. Results also showed a 6.5 mm heterogenous enhancing mass at the 1 o'clock position of the left breast, in the anterior 1/3 aspect of breast--US is recommended. I spoke with Dr. Mario by phone today, and he stated that he actually just spoke with Dr. Coronado with surgery about this patient. He referred her to Dr. Coronado and Dr. Coronado will be seeing her for F/U in the next few days. US of the left breast will most likely be done, and the plan is for either unilateral mastectomy (right sided) versus now potential bilateral mastectomy. She's not a chemo-candidate, nor is there a need for chemo, and patient expressed hesitation regarding XRT when she last met with Dr. Mario. In addition to discussing this with Dr. Mario today, I also updated Dr. Mario's clinic nurse. TATO Roger APRN,DEBBIE August 23, 2018 10:34
--- NOTE | 2018-08-23 10:55 | ONCOLOGY FOLLOW UP NOTE ---
EVENT DATE: August 23, 2018 REASON FOR FOLLOWUP Breast cancer. INTERIM HISTORY Ms. Foley returns to clinic for a followup visit today. She is accompanied by a friend. She has had further diagnostic studies since her initial visit with Shu Cordoba NP, on July 18. She reports really feeling no different since that time. She denies new pain. She has had no fever. Her appetite is pretty good and her weight has been stable. She reports that she has been missing several of her psychiatric medications and she has been working on getting these refilled. She is here to discuss further management of her breast cancer. REVIEW OF SYSTEMS Otherwise negative and all systems were reviewed. ONCOLOGY HISTORY ER/MN positive right breast cancer. * Initial presentation to primary care provider in early June 2018. * June 27, 2018: Mammogram reveals numerous cysts in right breast, largest measuring approximately 1 cm, as well as small fatty replaced lymph node at 3 o'clock position of right breast, 2 cm from nipple. This measured 5.7 x 6.7 x 2.2 mm. There was also an additional probable fatty replacement noted in the 4 o'clock position of the right breast, 2 cm from the nipple. At the 10 o'clock position in the right breast, 5 cm from nipple, there was a large solid hypoechoic noncircumscribed microlobulated mass with faint acoustic enhancement. No abnormalities noted in the left breast. Ultrasound reveals hypoechoic mass in the right breast 5 cm from the nipple, measuring 2.3 x 2.2 x 1.5 cm. * July 03, 2018: Right breast mass biopsy. Pathology reveals mucinous breast cancer, ER positive, MN positive, HER2 not overexpressed (1+ IHC), Ki-67 = 9.5%. * August 13, 2018: CT chest, abdomen and pelvis reveals tiny calcification in the neck of the gallbladder, possibly representing small stone. 7 mm sclerotic lesion in right sided L5 vertebral body, potentially incidental bone island. * August 13, 2018: Bone scan reveals multiple focal areas of isotope uptake within the cervical spine, may be degenerative in nature; focal area of isotope uptake over manubrial joint is likely degenerative; multifocal areas of degenerative type uptake otherwise. No abnormal uptake identified over the right sided L5 vertebral body, making bone island likely. * August 14, 2018: Breast MRI reveals heterogeneous mass in the 10 o'clock position of the right breast. 6.5 mm homogeneously enhancing mass in the 1 o'clock position of the left breast and anterior one-third, for which left breast ultrasound is recommended. Homogeneous enhancing mass in the 1 o'clock position of the right breast and anterior one-third in addition to two additional homogenously enhancing masses in the 2 to 3 o'clock position and the 3 to 4 o'clock position. * Oncotype DX score = 15. * BRCA 1 and BRCA 2 analysis reveals negative results for clinically significant mutation. PAST MEDICAL HISTORY 1. Breast cancer, as above. 2. Schizoaffective disorder. 3. Reported multiple sclerosis. 4. Gastritis/gastroesophageal reflux disease. 5. Asthma.l 6. Prediabetes. 7. Hypercholesterolemia. PAST SURGICAL HISTORY 1. Status post appendectomy in 1976. 2. Status post D and C in 1979. 3. Status post past ECT treatments. SOCIAL HISTORY The patient is single and she lives alone. She does not work. She drinks one to two beers per day. She smokes cigarettes, one pack per day. She is reportedly currently on disability. FAMILY HISTORY There is a history of uterine cancer reportedly in both her paternal and maternal grandmothers. There is a reported history of uterine cancer in her mother. MEDICATIONS 1. Aripiprazole. 2. Fenofibrate. 3. Fluticasone. 4. Ibuprofen. 5. Levothyroxine. 6. Omeprazole. 7. Pravastatin. 8. Triamcinolone. 9. Venlafaxine. VITAL SIGNS Patient is afebrile. Blood pressure 164/90, heart rate 105, respirations 16, oxygen saturation 95% on room air, weight 151 kg. PHYSICAL EXAMINATION GENERAL: Patient is alert and oriented x3, in no apparent distress, sitting in the exam room chair. She is talkative and pleasant. It is difficult at times to keep her on topic. HEENT: Anicteric sclerae. NEUROLOGIC: Grossly nonfocal, although speech patterns are somewhat pressured. EXTREMITIES: No edema, clubbing or cyanosis. SKIN: No concerning rash or lesion. LABORATORY STUDIES Reviewed per the [employer] record. IMAGING Please see oncology history. PATHOLOGY Please see oncology history. ASSESSMENT AND PLAN ER/MN positive mucinous right breast cancer. I visit with Tyler and her friend today in the clinic. We spent time reviewing her oncology history, which is noted above. We discussed her pathology results as well as imaging. We discussed her options moving forward. I would like for her to visit with Dr. Martinez in surgery. We discussed lumpectomy versus mastectomy. We discussed that radiation therapy would be part of breast conservation therapy if she were to undergo lumpectomy. We discussed surgical staging and how this could impact recommendations for adjuvant therapy postoperatively. The patient reports that she would be quite hesitant to undergo radiation therapy and she would consider mastectomy. We discussed potential need for radiation therapy if there were positivity for axillary lymph nodes. We also discussed recommended adjuvant endocrine therapy. She does have a reported strong history of uterine cancer. Given her age, aromatase inhibitor therapy would be best indicated. I do note the results of her recent breast MRI and I would like to review these findings further with Dr. Martinez. The patient had several additional questions for me today, many of which were not related to her history of breast cancer. I did my best to address these questions. I do think it will be particularly important for her to get back to her psychiatric medications, as this will be a challenging time for her. She does report every intention to do so. We also discussed social work involvement here in the clinic. I spent a total of 30 minutes of time face to face with the patient and her friend today and 20 minutes of this was spent in direct counseling and coordination of care. I will plan to see her back after her surgery. MARILU
[2018-09-21] MEDS ORDERED: TRAM-420 PO (07:16)
--- NOTE | 2018-09-24 12:30 | NUR ---
SW followed up with pt on needs. Pt stated she continued to need help with affording minutes for her phone and for paying insurance premiums for her part D. SW gave pt the contact number for gifts for living for her to contact them directly about these needs since an application was already submitted. Pt was agreeable.
[2018-09-28] MEDS ORDERED: AMOX1TAB9 PO (11:07)
== END 2018-10-15 ==
LOC: ONC 13:26
PROVIDERS: ATTEND Nurse Practitioner
DX: C50.411 Malignant neoplasm of upper-outer quadrant of right female breast (principal); Z17.0 Estrogen receptor positive status [ER+]; F17.210 Nicotine dependence, cigarettes, uncomplicated; Z79.899 Other long term (current) drug therapy
CPT/HCPCS: 82378; 85025; 86300; G0463; 71260; 74177; 77049; 78306; 82040; 82247; 82310; 82374; 82435; 82565; 82947; 84075; 84132; 84155; 84295; 84450; 84460; 84520; 99212; A9503; A9577; Q9967

== ENCOUNTER → 2018-09-03 | Outpatient (CLI) | payer MEDICARE ==
[2015-04-10 09:01] VITALS: BMI 24.9
[~2018-09-03] MED LIST changes: -IOPAMIDOL 76% 100 ML INFUS BTL 100 ML ONE
[2018-09-03 11:23] LABS: INR 0.89
--- NOTE | 2018-09-05 10:48 | RADIOLOGY IMAGING REPORT ---
FACILITY: [facility] - [place] PATIENT NAME: ALLAN MCKEON : [id number] MR: [id number] V: [id number] EXAM DATE: ORDERING PHYSICIAN: KM MARTINEZ TECHNOLOGIST: Eunice Mcclelland RT(R)(CT) PROCEDURE:US LEFT BREAST COMPLETE COMPARISON:Bilateral breast MR 08/14/18 INDICATIONS:Left breast mass on MR AREA SCANNED: FINDINGS: In the 12 o'clock position of the Left breast 3cm from the nipple there is a well circumscribed ovoid hypoechoic nodule measuring 5.2mm with acoustic enhancement & some internal linear echogenicity. This may represent a cluster of microcysts or possibly a debris filled cyst. In the 1 o'clock position Left breast 4cm from the nipple there is a 1cm cyst. In the 2 o'clock position Left breast 2cm from the nipple there is a 5mm cyst. In the 7 o'clock position Left breast 1cm from the nipple there is a small cluster of cysts. In the 1 o'clock position Left breast 4cm from the nipple there is a small fatty replaced lymph node measuring 6.4mm in length. This may account for the recent MR findings. Given the clinical history of Right breast cancer a 6 month follow up Breast MR is recommended to document stability of the enhancing nodule in the 1 o'clock position of the Left breast. DIAGNOSTIC CATEGORY 3--PROBABLY BENIGN FINDING. RECOMMENDATIONS: BREAST MRI: LEFT BREAST. IMPRESSION: BIRADS 3: Probably benign finding. A 6 month follow up Breast MR is recommended with & without contrast. Dictated by: Amy Patterson M.D. on 09/03/2018 at 18:00 Transcribed by: KATHLEEN on 09/04/2018 at 14:01 Approved by: Amy Patterson M.D. on 09/05/2018 at 10:46 [facility]
== END ==
LOC: US 00:32
PROVIDERS: ATTEND Surgery
DX: Z01.812 Encounter for preprocedural laboratory examination (principal); N63.20 Unspecified lump in the left breast, unspecified quadrant; C50.911 Malignant neoplasm of unspecified site of right female breast
CPT/HCPCS: 36415; 85610

== ENCOUNTER 2018-09-20 00:58 | Observation (INO) | payer MEDICARE ==
[2015-04-10 09:01] VITALS: Ht 162.6 cm; Wt 67.6 kg
[~2018-09-20] VITALS: Ht 162.6 cm; Wt 67.6 kg
[2018-09-20] VITALS (11 sets, daily range): BP systolic 97–114; BP diastolic 68–94
[2018-09-20] MEDS ORDERED: LIDOCAINE/PRILOCAINE 5 GM TUBE TP ONE (08:00)
[2018-09-20 08:40] LABS: PLATELET COUNT, AUTOMATED 392 K/uL (150-450)
--- NOTE | 2018-09-20 11:58 | RADIOLOGY IMAGING REPORT ---
FACILITY: [facility] - [place], [place] PATIENT NAME: Tyler Foley : 1960 MR: [id number] V: [id number] EXAM DATE: ORDERING PHYSICIAN: KM MARTINEZ TECHNOLOGIST: Location: [facility] - [place] Patient: Tyler Foley : 1960 Visit/Account:[id number] Date of Sevice: 09/20/2018 Exam type: NM SENTINEL NODE INJECTION ONLY History: right breast cancer Comparison: None. Findings: The patient received 516.3 uCi of technetium 99 M Lymphoseek in four separate subcutaneous periareol ar injections. Multiple gamma camera images were obtained over the chest demonstrating numerous righ t axillary sentinel lymph nodes. IMPRESSION: 1. There are numerous right axillary sentinel lymph nodes Report Dictated By: Amy Patterson MD at 09/20/2018 11:51 AM Report E-Signed By: Amy Patterson MD at 09/20/2018 11:52 AM WSN:[email or web address]
[2018-09-20] MEDS ORDERED: MIDAZOLAM 2 MG/2 ML VIAL IVP PRN (12:00)
[2018-09-20] MEDS ORDERED: LIDOCAINE/SOD BICARB 8.4% SYR ID ONE (12:00)
[2018-09-20] MEDS ORDERED: VANCOMYCIN(*) 1 GM VIAL 1 GM in NS(*) 0.9% 250 ML BAG 250 ML IVPB ONE (12:00)
[2018-09-20] MEDS ORDERED: FAMOTIDINE 20 MG TAB PO ONE (12:00)
[2018-09-20] MEDS ORDERED: NORMOSOL R SOLN(*) 1000 ML BAG 1,000 ML IV PRN (12:00)
[2018-09-20] MEDS ORDERED: fentaNYL CITR 100 MCG/2 ML AMP ONE ×3 (12:40→15:39)
[2018-09-20] MEDS ORDERED: ONDANSETRON 4 MG/2 ML VIAL ONE (12:42)
[2018-09-20] MEDS ORDERED: DEXAMETHASONE SOD PHOS 10MG/ML ONE (12:42)
[2018-09-20] MEDS ORDERED: LIDOCAINE MPF 1% 5 ML VIAL ONE (12:42)
[2018-09-20] MEDS ORDERED: PROPOFOL EMUL(*) 10MG/ML 20 ML 20 ML ONE (12:42)
[2018-09-20] MEDS ORDERED: ROPIVACAINE 0.5% 20 ML VIAL ONE ×2 (12:51→13:36)
[2018-09-20] MEDS ORDERED: ISOSULFAN BLUE 1% SLN 50MG/5ML ONE (12:51)
[2018-09-20] MEDS ORDERED: diphenhydrAMINE 50 MG/ML VIAL ONE (14:43)
[2018-09-20] MEDS ORDERED: KETOROLAC 30 MG/ML VIAL ONE (15:04)
[2018-09-20] MEDS ORDERED: NS(*) 0.9% 1000 ML BAG 1,000 ML IV PRN (15:29)
[2018-09-20] MEDS ORDERED: FLUSH 10 ML SYR IVP PRN (15:30)
[2018-09-20] MEDS ORDERED: ALBUTEROL/IPRATROPIUM 3 ML NEB NEB PRN (15:30)
[2018-09-20] MEDS ORDERED: ACETAMINOPHEN 325 MG TAB PO PRN (15:30)
[2018-09-20] MEDS ORDERED: MORPHINE 2 MG/ML SYR IVP PRN (15:30)
[2018-09-20] MEDS ORDERED: ONDANSETRON 4 MG/2 ML VIAL IVP PRN (15:30)
[2018-09-20] MEDS ORDERED: NALOXONE HCL 0.4 MG/ML VIAL IVP PRN (15:30)
[2018-09-20] MEDS ORDERED: diphenhydrAMINE 25 MG CAP PO PRN (15:30)
--- NOTE | 2018-09-20 15:59 | Post Operative Progress Note ---
Post Operative Progress Note Date: Sep 20, 2018 Time: 15:48 Surgeon: Juan Dictation number: [id number] Anesthesia: LMA by Dr. Mckeon Pre-Op Diagnosis: Right breast cancer (Mucinous type of IDC) Post-Op Diagnosis: FITZ Findings: C/W dx Procedure(s): Right mastectomy Right axillary SLN excision Specimen Removed:(May be N/A): 1) right breast 2) right sentinal lymph node 3) right axillary tissue Complications: None Fluids: See anesthesia record Estimated Blood Loss: Minimal Date OP Note Dictated: Sep 20, 2018 Time OP Note Dictated: 15:49 KM MARTINEZ MD Sep 20, 2018 15:59
[2018-09-20] MEDS: traMADol 50 MG TAB PO PRN ×2 (17:46→21:49)
[2018-09-20] MEDS: SALMETEROL/FLUTIC 100/50 1 INH INH SCH (18:11)
[2018-09-20] MEDS ORDERED: NICOTINE INH SYSTEM 10 MG/INH INH PRN ×2 (18:50→19:00)
[2018-09-20] MEDS ORDERED: NICOTINE CARTRIDGE 1 EA PO PRN (19:00)
[2018-09-20] MEDS: DOCUSATE SODIUM 100 MG CAP PO SCH (21:46)
--- NOTE | 2018-09-21 00:28 | OPERATIVE REPORT 1 ---
EVENT DATE: September 20, 2018 SURGEON: Jeferson Martinez MD ANESTHESIOLOGIST: Carlos Mckeon DO ANESTHESIA: LMA. PREOPERATIVE DIAGNOSIS Right breast cancer, mucinous type of invasive ductal carcinoma. POSTOPERATIVE DIAGNOSIS Right breast cancer, mucinous type of invasive ductal carcinoma. PROCEDURE PERFORMED 1. Right simple mastectomy. 2. Right axillary sentinel lymph node excision. ESTIMATED BLOOD LOSS Minimal. DRAINS Two 10 mm flat Familia-Mills drains. COMPLICATIONS None. CONDITION Stable. INDICATIONS FOR PROCEDURE This is a 57-year-old female who is referred to me by the cancer center, Dr. Mario, with a new diagnosis of a right breast mucinous invasive breast cancer. Looking at her mammogram, there appeared to be the possibility of multifocal disease, and she came to my office already indicating that she preferred mastectomy. We did discuss her options, including breast conservation therapy versus mastectomy with immediate or delayed reconstruction, or no reconstruction, and she elected to proceed with mastectomy with sentinel lymph node excision. DESCRIPTION OF PROCEDURE The patient was brought to the operating room and placed supine on the operating table. LMA anesthesia was administered, and her right breast, axilla and upper extremity were prepped and draped in a sterile fashion. Time-out was completed, and I marked the skin in an elliptical fashion over the right breast, including the nipple/areolar complex within the ellipse, and also injected the periareolar tissue in the dermis with Lymphazurin. I then anesthetized the skin where I had marked it, and then made an incision in the skin all the way around the ellipse. I dissected through the dermis and into the subcutaneous fat. I then created subcutaneous flaps all the way up to the clavicle, medial to the sternum, inferior down to the superior portion of the abdominal rectus muscles, and laterally past the lateral edge of the pectoralis major muscle. I then raised the breast off the pectoralis muscle to include the fascia as the deep margin, and then made sure I removed the entire axillary tail, and then marked the tail with a silk suture and sent this to pathology labeled as right breast with an appropriate suture marking the axillary tail. I then used the gamma probe and identified the sentinel lymph node and the axilla. I entered the axillary contents and easily removed this node, and it had a gamma count of almost 5800, and this was sent fresh to Pathology for frozen section. I then searched the axilla for more blue nodes or nodes with gamma output, and there were no further nodes. There was some axillary tissue that I did remove with the node, and there was some blue-stained tissue as well that did not really have much gamma output, and these were placed in a separate specimen container and sent in formalin labeled "right axillary tissue." I then irrigated and dried the axilla and made sure it was hemostatic. We then heard back from pathology that the lymph node did not contain any cancer cells, although there was a defect in the tissue, and he could not tell if this contained mucin, although mucin does not survive the freezing process. He did not show neoplastic cells in the lymph node. Because mucinous type of infiltrating ductal carcinoma breast cancers have less likelihood of going to the axillary lymph nodes, and without any obvious cancer cells, I elected not to proceed with any axillary dissection at this time. I placed a 10 mm flat Familia-Mills drain up in the axilla and another 10 mm flat Familia-Mills drain medially in the mastectomy wound, and sewed these to the skin with 2-0 silk sutures. I irrigated and dried the wound and closed the skin with interrupted 3-0 Vicryl deep dermal sutures and then skin santosh. Her skin was cleaned, dried, and sterile surgical dressings were placed over the incision, and drain dressings were placed around the drains. Patient was awakened from LMA and she was transported to the recovery room in stable condition, having tolerated the procedure without any apparent problems. MARILU
[2018-09-21 01:06] VITALS: BP 94/66
[2018-09-21] MEDS: traMADol 50 MG TAB PO PRN ×2 (02:24→06:30)
[2018-09-21 03:13] VITALS: BP 101/66
[2018-09-21] MEDS: SALMETEROL/FLUTIC 100/50 1 INH INH SCH (05:47)
[2018-09-21 06:53] VITALS: BP 103/79
--- NOTE | 2018-09-21 07:12 | General Surgery Progress Note ---
Subjective Progress Notes Subjective doing well. pain controlled. Physical Exam Vital Signs Date Time Temp Pulse Resp B/P (MAP) Pulse Ox O2 Delivery O2 Flow Rate FiO2 09/21/18 06:53 98.5 82 16 103/79 (87) 91 Nasal Cannula 3.0 Intake and Output 09/21/18 07:01 Intake Total 1755 ml Output Total 255 ml Balance 1500 ml Intake Oral 255 ml IV Total 1500 ml Output Drainage Total 230 ml Estimated Blood Loss 25 ml # Voids 4 General Appearance: No Acute Distress Cardiovascular: Other (reg rate) Chest: Other (wounds dressed. jps - bloody) Result Diagram: 09/20/18 0822 Assessment and Plan Problems: (1) Breast cancer of upper-outer quadrant of right female breast Status: Chronic Assessment & Plan: s/p mastectomy. doing well. diet as mauro. drain and bandage instruction. home today. Exam Sepsis Risk: No Definite Risk ZULEYKA RAMOS Sep 21, 2018 07:12
[2018-09-21] MEDS ORDERED: TRAM-420 PO (07:16)
--- NOTE | 2018-09-21 07:19 | Hospitalist Depart ---
Discharge Summary Reason for Hosp/Final Diag: (1) Breast cancer of upper-outer quadrant of right female breast Status: Chronic Hospital Course & Plan: s/p mastectomy. doing well. diet as mauro. drain and bandage instruction. home today. Departure Weight (Pounds): 149 Result Diagram: 09/20/18 0822 Condition: Improved Discharge: Home Discharge Instructions Home Meds Active Scripts Tramadol Hcl (TRAMADOL HCL) 50 Mg Tablet, 50 MG PO Q4H PRN for PAIN, #20 TAB Prov:ZULEYKA RAMOS 09/21/18 Reported Medications Venlafaxine Hcl (VENLAFAXINE HCL ER) 150 Mg Cap.er.24h, 300 MG PO QDAY 04/11/15 Omeprazole (Omeprazole) 20 Mg Tablet.dr, 40 MG PO DAILY, 0 Refills 05/24/10 Fluticasone/Salmeterol (Advair 100/50 Diskus) 1 Disk W/Dev Disk.w.dev, 1 DISK IH DAILY 05/24/10 Discontinued Reported Medications Fenofibrate,Micronized (FENOFIBRATE) 130 Mg Capsule, 160 MG PO QDAY, CAPSULE 04/11/15 Pravastatin Sodium (PRAVASTATIN SODIUM) 40 Mg Tablet, 40 MG PO QDAY 04/11/15 Albuterol Sulfate (Proventil Hfa) 6.7 Gm Aer.w.adap, 1-2 PUFF INH PRN 03/28/12 Aripiprazole 15 MG (Abilify 15 MG) 15 Mg Tablet, 5 MG PO QDAY, 0 Refills 05/24/10 Diet: Regular Special Instructions: no lifting arm above or behind shoulder. ok to shower tomorrow and change bandage as instructed. take stool softener while taking pain meds. f/u dr. marinelli as instructed. Venous Thromboembolism Antithrombotics Is Pt On Any Antithrombotics?: No ZULEYKA RAMOS Sep 21, 2018 07:19
[2018-09-21] MEDS: DOCUSATE SODIUM 100 MG CAP PO SCH (08:25)
[2018-09-21] MEDS ORDERED: PANTOPRAZOLE SOD 40 MG TABEC PO SCH (09:00)
[2018-09-21] MEDS ORDERED: VENLAFAXINE XR 75 MG CAPCR PO SCH (09:00)
--- NOTE | 2018-09-21 09:15 | NUR ---
Occupational Therapy Impression OT evaluation completed. Pt engaged in lymphedema education per Dr. Martinez protocol. Independent with all ADLs. SpO2 85% on room air. SpO2 WNL on 1.5L. Pt with no further questions/concerns for OT at this time. Ready for discharge when medically appropriate. Occupational Therapy Goals Patient's Goal
== END 2018-09-21 07:13 | disposition home or self-care (01) ==
LOC: OR 00:58 → MED 16:30
PROVIDERS: ADMIT Surgery; ATTEND Surgery
DX: C50.911 Malignant neoplasm of unspecified site of right female breast (principal); J45.909 Unspecified asthma, uncomplicated; G47.33 Obstructive sleep apnea (adult) (pediatric); R73.03 Prediabetes
CPT/HCPCS: 19307; 78195; 85025; 88305; 88307; 88309; 88331; 88342; 94640; 97165; A9270; A9520; G0378; J1100; J1200; J1885; J2001; J2250; J2405; J2704; J2795; J3010; J3370; J3535; J7030; J7050; Q9968; 88344